=== PATIENT | male | born 1980 | race Native Hawaiian/Other Pacific Islander ===

== ENCOUNTER 2017-01-23 07:36 | Emergency (ER) | payer OTHER ==
[~2017-01-23] VITALS: Ht 175.3 cm; Wt 65.8 kg
[~2017-01-23 07:36] MED LIST: INSU100I2 SC
[2017-01-23 07:45] VITALS: TEMP 98.63
[2017-01-23 08:42] LABS: POTASSIUM 3.9 mmol/L (3.6-5.2); SODIUM 129 mmol/L (136-145)
[2017-01-23 08:49] LABS: PLATELET COUNT 223 K/uL (142-355)
[2017-01-23 11:39] VITALS: BP 117/71
== END 2017-01-23 11:39 | disposition home or self-care (01) ==
LOC: ED 07:36
PROVIDERS: Specialist
DX: E86.9 Volume depletion, unspecified (principal); R11.2 Nausea with vomiting, unspecified; E11.9 Type 2 diabetes mellitus without complications
CPT/HCPCS: 36591; 36600; 80053; 81000; 81002; 82805; 83735; 84100; 85027; 96361; 96374; 99284; J2405

== ENCOUNTER → 2017-02-03 07:08 | Outpatient (CLI) | payer OTHER | END | disposition home or self-care (01) | LOC: AMB 07:08 | DX: Z04.1 Encounter for examination and observation following transport accident (principal) ==

== ENCOUNTER 2017-02-03 13:24 | Emergency (ER) | payer OTHER ==
[~2017-02-03] VITALS: Ht 175.3 cm; Wt 65.8 kg
[2017-02-03 16:16] VITALS: BP 112/77; TEMP 98
== END 2017-02-03 16:16 | disposition home or self-care (01) ==
LOC: ED 13:24
DX: S46.812A Strain of other muscles, fascia and tendons at shoulder and upper arm level, left arm, initial encounter (principal); R07.89 Other chest pain; V43.52XA Car driver injured in collision with other type car in traffic accident, initial encounter
CPT/HCPCS: 99283

== ENCOUNTER 2017-02-09 12:22 | Emergency (ER) | payer OTHER ==
[~2017-02-09] VITALS: Ht 154.9 cm; Wt 65.8 kg
[2017-02-09 12:29] VITALS: TEMP 98.2
[2017-02-09 13:30] VITALS: BP 116/80
== END 2017-02-09 13:48 | disposition home or self-care (01) ==
LOC: ED 12:22
DX: M54.2 Cervicalgia (principal); M51.34 Other intervertebral disc degeneration, thoracic region; N20.0 Calculus of kidney; M40.204 Unspecified kyphosis, thoracic region
CPT/HCPCS: 99283; L0120

== ENCOUNTER 2017-03-11 19:56 | Emergency (ER) | payer OTHER ==
[~2017-03-11] VITALS: Ht 172.7 cm; Wt 62.6 kg
[2017-03-11 20:55] VITALS: BP 128/90; TEMP 98.3
== END 2017-03-11 21:05 | disposition home or self-care (01) ==
LOC: ED 19:56
DX: S16.1XXA Strain of muscle, fascia and tendon at neck level, initial encounter (principal); S29.012A Strain of muscle and tendon of back wall of thorax, initial encounter; M47.892 Other spondylosis, cervical region
CPT/HCPCS: 96372; 99283; J1885; J2060

== ENCOUNTER 2017-09-12 11:31 | Emergency (ER) | payer OTHER ==
[~2017-09-12] VITALS: Ht 175.3 cm; Wt 68.0 kg
[2017-09-12 14:53] VITALS: BP 119/76; TEMP 98.6
== END 2017-09-12 14:57 | disposition home or self-care (01) ==
LOC: ED 11:31
DX: L02.31 Cutaneous abscess of buttock (principal)
CPT/HCPCS: 99281

== ENCOUNTER 2017-09-16 11:47 | Observation (INO) | payer OTHER ==
[~2017-09-16] VITALS: Ht 175.3 cm; Wt 61.9 kg
[2017-09-16] VITALS (9 sets, daily range): BP systolic 97–120; BP diastolic 55–73; TEMP 98.3–99.1; Ht 175.3 cm; Wt 61.9 kg
[2017-09-16 14:25] LABS: PLATELET COUNT 196 K/uL (142-355)
[2017-09-16 14:39] LABS: POTASSIUM 4.2 mmol/L (3.6-5.2); SODIUM 133 mmol/L (136-145)
--- NOTE | 2017-09-16 14:57 | NUR ---
1500 PT TO OR VIA BED PER OR CREW. NO ACUTE DISTRESS NOTED
[2017-09-16] MEDS ORDERED: INSU100I2 SC (15:13)
[2017-09-16] MEDS ORDERED: METFORMIN HCL500 M1 PO (16:21)
[2017-09-16] MEDS ORDERED: LISI5TAB10 PO (16:22)
[2017-09-16] MEDS ORDERED: LIPITOR10 MG PO (16:23)
--- NOTE | 2017-09-16 16:36 | NUR ---
1630 PT BACK FROM OR VIA BED PER OR CREW. PT AWAKE AND ALERT. DRESSING TO BUTTOCK AREA. NO ACITVE BLEEDING NOTED.
--- NOTE | 2017-09-16 19:06 | NUR ---
184 DR MONZON INFORMED PT REFUSED IV ABX AND NEW ORDERS REC'D TO GIVE VANCOMYCIN 1GM IV NOW.
[2017-09-17] VITALS: BP 108/65; TEMP 98.4
[2017-09-17 04:00] VITALS: BP 110/62; TEMP 99.3
[2017-09-17 08:00] VITALS: BP 104/64; TEMP 99
[2017-09-17 12:00] VITALS: BP 111/65; TEMP 99.6
--- NOTE | 2017-09-17 15:15 | NUR ---
IV D/C'd. NO REDNESS OR EDEMA OBSERVED. DISCHARGE INSTRUCTION SIGNED AND GIVEN Pt. EXIT OUT OF FRONT ENTRANCE AMBULATING.
== END 2017-09-17 15:15 | disposition home or self-care (01) ==
LOC: MED/SURG 11:47
PROVIDERS: ADMIT Family Medicine
PROC: 0J990ZZ Drainage of Buttock Subcutaneous Tissue and Fascia, Open Approach (ICD-10-PCS; principal; 2017-09-16)
DX: L02.31 Cutaneous abscess of buttock (principal); E11.65 Type 2 diabetes mellitus with hyperglycemia; I10 Essential (primary) hypertension
CPT/HCPCS: 80053; 81000; 82948; 85027; 87040; 87070; 87076; 87205; 96365; 96366; 96367; 96372; 99220; G0378; G0379; J0132; J0330; J1815; J2250; J2405; J2704; J2765; J3010; J3370; J3490; S0028

== ENCOUNTER 2018-12-29 07:49 | Emergency (ER) | payer OTHER ==
[~2018-12-29] VITALS: Ht 175.3 cm; Wt 68.0 kg
[~2018-12-29 07:49] MED LIST changes: +LIPITOR10 MG PO; +LISI5TAB10 PO; +METFORMIN HCL500 M1 PO
[2018-12-29] MEDS ORDERED: GLIP10TA55 PO (08:12)
[2018-12-29] MEDS ORDERED: PANTOPRAZOLE 40MG TA PO (08:12)
[2018-12-29] MEDS ORDERED: RANI150T78 PO (08:13)
[2018-12-29 08:44] LABS: PLATELET COUNT 208 K/uL (142-355)
[2018-12-29 08:50] LABS: POTASSIUM 4.3 mmol/L (3.6-5.2)
[2018-12-29 11:15] VITALS: BP 97/65; TEMP 98
== END 2018-12-29 11:15 | disposition home or self-care (01) ==
LOC: ED 07:49
PROVIDERS: Emergency Medicine
DX: R51 Headache (principal)
CPT/HCPCS: 80053; 85027; 87502; 87651; 96361; 96374; 96375; 99283; J1885; J2270; J2405; J7060